=== PATIENT | male | born 1950 | race Caucasian/White ===

== ENCOUNTER 2021-09-26 22:26 | Inpatient (IN) | payer OTHER ==
[~2021-09-26] VITALS: Ht 182.9 cm; Wt 102.0 kg
[2021-09-26] MEDS ORDERED: GASTROGRAFIN 120 ML SOL ONE (23:01)
[2021-09-27] MEDS ORDERED: GLUCAGON HYDROCHLORIDE (RDNA) 1 MG VIAL IV ONE (01:30)
[2021-09-27] MEDS ORDERED: SODIUM CHLORIDE 0.9% 1,000 ML IV ONE (08:00)
[2021-09-27 09:52] LABS: Basophils # (auto) 0.1 10 ^3/uL (0-0.2); Basophils % (auto) 0.5 % (0.0-2.0); Eosinophils # (auto) 0 10 ^3/uL (0-0.8); Hematocrit 50.9 % (41.0-53.0); Hemoglobin 17.4 g/dL (13.5-17.5); Lymphocytes # (auto) 1.4 10 ^3/uL (0.4-5.4); Lymphocytes % (auto) 8.5 % (10.0-50.0); Mean Corpuscular Hemoglobin 32.4 pg (28.0-32.0); Mean Corpuscular Hgb Conc. 34.2 g/dL (32.0-36.0); Mean Corpuscular Volume 94.7 fL (80.0-100.0); Monocytes # (auto) 0.7 10 ^3/uL (0-1.3); Monocytes % (auto) 4.2 % (0.0-12.0); Neutrophils % (auto) 86.8 % (37.0-80.0); Nucleated Red Blood Cells % 0.1 %; Red Blood Cells 5.37 10^6/uL (4.5-5.90); White Blood Cell 16.1 10^3/uL (4.4-10.8)
[2021-09-27 10:02] LABS: INR 1.05 (0.9-1.15); Partial Thromboplastin Time 26.1 sec (23.6-33.0)
[2021-09-27 10:04] LABS: Calcium 9.4 mg/dL (8.5-10.1); Potassium 4.5 mmol/L (3.5-5.1)
[2021-09-27 10:07] LABS: Bilirubin, Total 0.9 mg/dL (0.2-1.0); Total Protein 7.9 g/dL (6.4-8.2)
[2021-09-27] MEDS ORDERED: ONDANSETRON HCL 4 MG/2 ML VIAL ONE (10:10)
[2021-09-27] MEDS ORDERED: ONDANSETRON HCL 4 MG/2 ML VIAL IV ONE (10:30)
[2021-09-27] MEDS ORDERED: SODIUM CHLORIDE LOCK 10 ML ONE (12:56)
[2021-09-27] MEDS ORDERED: diphenhdrAMINE HCL 50 MG/1 ML VL ONE (12:57)
[2021-09-27] MEDS: MIDAZOLAM HCL 5 MG/ML-1ML VIAL ONE ×2 (13:04→13:07)
[2021-09-27] MEDS: fentaNYL CITRATE 100 MCG/2 ML VL ONE ×2 (13:04→13:07)
[2021-09-27] MEDS ORDERED: NITROGLYCERIN 0.4 MG SL TAB SL PRN (13:45)
[2021-09-27] MEDS ORDERED: MORPHINE SULFATE INJECTION 2 MG/ML SYRG IV PRN (13:45)
[2021-09-27 17:17] VITALS: BP 144/94
[2021-09-27] MEDS: SUCRALFATE 1 GM/10 ML ORAL SUSP PO SCH ×2 (18:01→21:09)
[2021-09-27] MEDS ORDERED: SIMV5TAB50 PO (18:59)
[2021-09-27 20:00] VITALS: BP 137/83
[2021-09-27] MEDS: PANTOPRAZOLE 40 MG/10 ML VIAL INJ IV SCH (21:09)
[2021-09-28 04:00] VITALS: BP 137/80
[2021-09-28] MEDS: SUCRALFATE 1 GM/10 ML ORAL SUSP PO SCH ×2 (06:45→08:14)
[2021-09-28 07:04] LABS: Basophils # (auto) 0 10 ^3/uL (0-0.2); Basophils % (auto) 0.4 % (0.0-2.0); Eosinophils # (auto) 0.2 10 ^3/uL (0-0.8); Eosinophils % (auto) 1.6 % (0.0-7.0); Lymphocytes # (auto) 2.8 10 ^3/uL (0.4-5.4); Mean Corpuscular Hgb Conc. 34.8 g/dL (32.0-36.0); Monocytes # (auto) 1.2 10 ^3/uL (0-1.3); Monocytes % (auto) 9.6 % (0.0-12.0); Neutrophils # (auto) 8.1 10 ^3/uL (1.6-8.6); Neutrophils % (auto) 65.4 % (37.0-80.0); Nucleated Red Blood Cells % 0.1 %; Red Blood Cells 4.84 10^6/uL (4.5-5.90); Red Cell Distribution Width 13.2 % (11.8-14.3); White Blood Cell 12.3 10^3/uL (4.4-10.8)
[2021-09-28 07:29] LABS: Potassium 3.8 mmol/L (3.5-5.1)
[2021-09-28 07:36] LABS: BUN/Creatinine Ratio 21.5; Calcium 8.3 mg/dL (8.5-10.1); Magnesium 3.2 mg/dL (1.6-2.6)
[2021-09-28] MEDS: PANTOPRAZOLE 40 MG/10 ML VIAL INJ IV SCH (08:14)
[2021-09-28 09:00] VITALS: BP 141/90
[2021-09-28 13:00] VITALS: BP 149/93
[2021-09-28] MEDS ORDERED: PANT40TA2 PO (13:25)
[2021-09-28] MEDS ORDERED: SUCR1SUS10 PO (13:25)
[2021-09-28 13:31] VITALS: BP 149/93
== END 2021-09-28 14:33 | disposition home or self-care (01) | DRG 393 ==
LOC: ER 22:29 → OVERFLOW 09-27 13:31 → CENTRAL 09-27 16:28
PROVIDERS: ADMIT Internal Medicine; ATTEND Internal Medicine
PROC: 0DB68ZX Excision of Stomach, Via Natural or Artificial Opening Endoscopic, Diagnostic (ICD-10-PCS; 2021-09-27)
PROC: 0DB48ZX Excision of Esophagogastric Junction, Via Natural or Artificial Opening Endoscopic, Diagnostic (ICD-10-PCS; 2021-09-27)
PROC: 0DC48ZZ Extirpation of Matter from Esophagogastric Junction, Via Natural or Artificial Opening Endoscopic (ICD-10-PCS; 2021-09-27)
PROC: 0W3P8ZZ Control Bleeding in Gastrointestinal Tract, Via Natural or Artificial Opening Endoscopic (ICD-10-PCS; 2021-09-27)
PROC: 0DB98ZX Excision of Duodenum, Via Natural or Artificial Opening Endoscopic, Diagnostic (ICD-10-PCS; principal; 2021-09-27 13:00)
DX: T18.198A Other foreign object in esophagus causing other injury, initial encounter (principal); K25.4 Chronic or unspecified gastric ulcer with hemorrhage; K22.2 Esophageal obstruction; K29.80 Duodenitis without bleeding; K29.70 Gastritis, unspecified, without bleeding; D72.829 Elevated white blood cell count, unspecified; K26.9 Duodenal ulcer, unspecified as acute or chronic, without hemorrhage or perforation; X58.XXXA Exposure to other specified factors, initial encounter; Z20.822 Contact with and (suspected) exposure to COVID-19; Z80.0 Family history of malignant neoplasm of digestive organs; Y93.89 Activity, other specified; Y92.89 Other specified places as the place of occurrence of the external cause; Y99.8 Other external cause status
CPT/HCPCS: 36415; 70360; 71046; 80048; 80053; 83735; 85025; 85610; 85730; 87426; 96361; 96374; 96375; C9113; G0378; J2250; J2405

== ENCOUNTER 2023-08-16 09:44 | Inpatient (IN) | payer OTHER ==
[~2023-08-16] VITALS: Ht 185.4 cm; Wt 99.5 kg
[~2023-08-16 09:44] MED LIST: PANT40TA2 PO; SIMV5TAB14 PO; SUCR1SUS26 PO
[2023-08-16 10:18] LABS: Basophils # (auto) 0.1 10 ^3/uL (0-0.2); Eosinophils # (auto) 0.2 10 ^3/uL (0-0.8); Hemoglobin 17.8 g/dL (13.5-17.5); Nucleated Red Blood Cells % 0.4 %
[2023-08-16 10:21] LABS: Basophils % (auto) 0.7 % (0.0-2.0); Eosinophils % (auto) 1.9 % (0.0-7.0); Hematocrit 52.3 % (41.0-53.0); Lymphocytes # (auto) 2.2 10 ^3/uL (0.4-5.4); Lymphocytes % (auto) 24.5 % (10.0-50.0); Mean Corpuscular Hemoglobin 32.1 pg (28.0-32.0); Mean Corpuscular Hgb Conc. 34.1 g/dL (32.0-36.0); Mean Corpuscular Volume 94.3 fL (80.0-100.0); Monocytes # (auto) 0.7 10 ^3/uL (0-1.3); Monocytes % (auto) 7.5 % (0.0-12.0); Neutrophils % (auto) 65.4 % (37.0-80.0); Red Blood Cells 5.55 10^6/uL (4.5-5.90); Red Cell Distribution Width 13.4 % (11.8-14.3); White Blood Cell 9.1 10^3/uL (4.4-10.8)
[2023-08-16 10:34] LABS: Alanine Aminotransferase 31 U/L (7-40); Albumin 4.6 g/dL (3.2-4.8); Alkaline Phosphatase 112 U/L (46-116); Anion Gap 8 (5-15); Aspartate Aminotransferase 29 U/L (13-40); BUN/Creatinine Ratio 13.6 (10.0-20.0); Bilirubin, Total 1.1 mg/dL (0.2-1.0); Blood Urea Nitrogen 16 mg/dL (9-23); Calcium 9.9 mg/dL (8.5-10.1); Carbon Dioxide 26 mmol/L (20-30); Chloride 106 mmol/L (98-107); Glucose 135 mg/dL (74-106); Potassium 4.2 mmol/L (3.5-5.1); Sodium 140 mmol/L (136-145)
[2023-08-16 10:35] LABS: Total Protein 7.3 g/dL (5.7-8.2)
[2023-08-16 10:37] VITALS: PULSE 102; RESP 13; O2SAT 96
[2023-08-16] MEDS ORDERED: ONDANSETRON HCL 4 MG/2 ML VIAL IV PRN (14:15)
[2023-08-16] MEDS ORDERED: HYDROcodone-ACET 5/325MG TAB PO PRN (14:15)
[2023-08-16] MEDS ORDERED: ACETAMINOPHEN 325 MG TAB PO PRN (14:15)
[2023-08-16] MEDS ORDERED: MORPHINE SULFATE INJ 2 MG/ml SYRG IV PRN ×2 (14:15)
[2023-08-16] MEDS ORDERED: NITROGLYCERIN 0.4 MG SL TAB SL PRN (14:15)
[2023-08-16] MEDS: SODIUM CHLORIDE 0.9% 1,000 ML IV SCH (14:35)
[2023-08-16] MEDS ORDERED: IOHEXOL 350 MG/ML 100ML IJ ONE (15:12)
[2023-08-16] MEDS ORDERED: ASPirin 325 MG TAB PO ONE (15:15)
[2023-08-16] MEDS: CLOPIDOGREL BISULFATE 75 MG TAB PO SCH (16:00)
[2023-08-16 16:17] LABS: Urine Bacteria NONE SEEN /hpf (None Seen); Urine Blood Negative /uL (Negative); Urine Clarity Clear (Clear); Urine Color Yellow (Yellow); Urine Mucus FEW (None Seen); Urine Protein, UAD TRACE (Negative); Urine Specific Gravity 1.032 (1.001-1.035); Urine WBC 2 /hpf (0 - 3); Urine pH 5.5 (5.0-8.0)
[2023-08-16 19:50] VITALS: PULSE 85; RESP 12; O2SAT 93
[2023-08-16] MEDS: ATORVASTATIN 20 MG TAB PO SCH (22:34)
[2023-08-16 23:54] VITALS: BP 149/85; PULSE 78; PULSE 90; RESP 20; TEMP 97.5; O2SAT 94; O2SAT 99
[2023-08-16 23:56] VITALS: BP 169/98; PULSE 90; RESP 20; TEMP 97.5; O2SAT 94
[2023-08-17] VITALS (8 sets, daily range): BP systolic 119–174; BP diastolic 74–102; PULSE 69–105; RESP 18–95; TEMP 97.9–98.8; O2SAT 92–99
[2023-08-17] MEDS: SODIUM CHLORIDE 0.9% 1,000 ML IV SCH ×2 (06:19→23:35)
[2023-08-17 07:21] LABS: Alanine Aminotransferase 21 U/L (7-40); Albumin 4.2 g/dL (3.2-4.8); Alkaline Phosphatase 96 U/L (46-116); Anion Gap 8 (5-15); Aspartate Aminotransferase 24 U/L (13-40); BUN/Creatinine Ratio 10.5 (10.0-20.0); Blood Urea Nitrogen 10 mg/dL (9-23); Calcium 9.2 mg/dL (8.5-10.1); Carbon Dioxide 24 mmol/L (20-30); Chloride 108 mmol/L (98-107); Glucose 91 mg/dL (74-106); Potassium 3.6 mmol/L (3.5-5.1); Sodium 140 mmol/L (136-145)
[2023-08-17 07:22] LABS: Total Protein 6.7 g/dL (5.7-8.2)
[2023-08-17 07:31] LABS: Basophils # (auto) 0.1 10 ^3/uL (0-0.2); Basophils % (auto) 0.8 % (0.0-2.0); Eosinophils # (auto) 0.2 10 ^3/uL (0-0.8); Eosinophils % (auto) 1.8 % (0.0-7.0); Hematocrit 48.2 % (41.0-53.0); Hemoglobin 16.8 g/dL (13.5-17.5); Lymphocytes # (auto) 2.2 10 ^3/uL (0.4-5.4); Lymphocytes % (auto) 22.9 % (10.0-50.0); Mean Corpuscular Hemoglobin 32.4 pg (28.0-32.0); Mean Corpuscular Hgb Conc. 34.8 g/dL (32.0-36.0); Mean Corpuscular Volume 93.2 fL (80.0-100.0); Monocytes # (auto) 0.9 10 ^3/uL (0-1.3); Monocytes % (auto) 8.9 % (0.0-12.0); Neutrophils # (auto) 6.4 10 ^3/uL (1.6-8.6); Neutrophils % (auto) 65.6 % (37.0-80.0); Nucleated Red Blood Cells % 0.3 %; Red Blood Cells 5.17 10^6/uL (4.5-5.90); Red Cell Distribution Width 13.2 % (11.8-14.3); White Blood Cell 9.8 10^3/uL (4.4-10.8)
[2023-08-17] MEDS: ENOXAPARIN SOD 40 MG/0.4 ML SYRINGE SC SCH (10:26)
[2023-08-17] MEDS: CLOPIDOGREL BISULFATE 75 MG TAB PO SCH (10:26)
[2023-08-17] MEDS: ASPirin-EC 81 mg tab PO SCH (10:26)
[2023-08-17 13:11] LABS: Triglycerides 137 mg/dL (< 150)
[2023-08-17 13:12] LABS: LDL Cholesterol 99 mg/dL (< 100)
[2023-08-17 13:13] LABS: Cholesterol 145 mg/dL (< 200); HDL Cholesterol 35 mg/dL (40-59)
[2023-08-17] MEDS ORDERED: hydrALAZINE HCL 20 MG/ML VL IV PRN (16:30)
[2023-08-17] MEDS ORDERED: hydrALAZINE HCL 20 MG/ML VL ONE (17:49)
[2023-08-17] MEDS ORDERED: ALPRAZolam 0.5 MG TAB PO PRN (19:45)
[2023-08-17] MEDS: ATORVASTATIN 20 MG TAB PO SCH (21:40)
[2023-08-18 05:00] VITALS: BP 146/79; PULSE 91; RESP 20; TEMP 98.1; O2SAT 97
[2023-08-18 08:00] VITALS: BP 132/94; PULSE 81; PULSE 82; PULSE 85; RESP 18; RESP 20; TEMP 98.8; O2SAT 96
[2023-08-18] MEDS: CLOPIDOGREL BISULFATE 75 MG TAB PO SCH (10:58)
[2023-08-18] MEDS: ASPirin-EC 81 mg tab PO SCH (10:58)
[2023-08-18] MEDS: ENOXAPARIN SOD 40 MG/0.4 ML SYRINGE SC SCH (10:58)
[2023-08-18 13:00] VITALS: BP 157/92; PULSE 81; RESP 19; TEMP 98.3; O2SAT 91
[2023-08-18] MEDS ORDERED: PATIENTS OWN MEDICATION (eliquis 5 MG) PO SCH (15:00)
[2023-08-18] MEDS: SODIUM CHLORIDE 0.9% 1,000 ML IV SCH (16:15)
[2023-08-18] MEDS ORDERED: APIX5TAB PO (16:50)
[2023-08-18] MEDS ORDERED: ATOR20TA50 PO (16:50)
[2023-08-18 17:10] VITALS: BP 155/88; PULSE 89; RESP 18; TEMP 98.3; O2SAT 100
[2023-08-18 17:55] VITALS: TEMP 36.8
[2023-08-18] MEDS ORDERED: APIXABAN 5 MG TAB PO SCH (22:00)
== END 2023-08-18 19:01 | disposition home or self-care (01) | DRG 64 ==
LOC: ER 09:44 → EDBD 09:44 → TELE 14:08 → TELE-WESTW 22:42
PROVIDERS: ADMIT Internal Medicine; ATTEND Internal Medicine
DX: I63.40 Cerebral infarction due to embolism of unspecified cerebral artery (principal); G93.41 Metabolic encephalopathy; E78.5 Hyperlipidemia, unspecified; R47.01 Aphasia; I10 Essential (primary) hypertension; I48.0 Paroxysmal atrial fibrillation; R29.701 NIHSS score 1; Z79.02 Long term (current) use of antithrombotics/antiplatelets; Z86.73 Personal history of transient ischemic attack (TIA), and cerebral infarction without residual deficits
CPT/HCPCS: 36415; 70450; 70496; 70551; 80053; 80061; 81001; 82962; 83036; 84484; 85025; 93005; 93306; 93886; 97110; 97116; 97163; 99291; G0378

== ENCOUNTER 2023-09-20 07:54 | Day surgery (SDC) | payer OTHER ==
[~2023-09-20] VITALS: Ht 185.4 cm; Wt 100.7 kg
[~2023-09-20 07:54] MED LIST changes: +APIX5TAB PO; +ATOR20TA50 PO; +METO25TA5 PO; -SIMV5TAB14 PO; -SUCR1SUS26 PO
[2023-09-20] MEDS ORDERED: fentaNYL CITRATE 100 MCG/2 ML VL IV ONE (08:30)
[2023-09-20] MEDS ORDERED: ONDANSETRON HCL 4 MG/2 ML VIAL IV ONE (08:30)
[2023-09-20] MEDS ORDERED: LIDOCAINE VISCOUS 2% 15ML UD MT ONE (08:30)
[2023-09-20] MEDS ORDERED: MIDAZOLAM HCL 2MG/2ML 2ml VIAL (1mg/ml) IV ONE (08:30)
[2023-09-20 09:14] VITALS: BP 168/122; PULSE 86; RESP 16; O2SAT 96
[2023-09-20 09:30] VITALS: BP 121/77; PULSE 74; RESP 14; O2SAT 90
[2023-09-20 09:44] VITALS: BP 124/84; PULSE 72; RESP 16; O2SAT 92
[2023-09-20 09:59] VITALS: BP 120/78; PULSE 71; RESP 12; O2SAT 92
== END 2023-09-20 10:10 | disposition home or self-care (01) ==
LOC: CATH 07:54
PROVIDERS: ATTEND Internal Medicine
DX: I63.9 Cerebral infarction, unspecified (principal); Z79.899 Other long term (current) drug therapy
CPT/HCPCS: 93312; J2250; J2405; J3010; J7040; 99152